=== PATIENT | female | born 1970 | race Caucasian/White ===

== ENCOUNTER → 2022-12-05 | Outpatient (CLI) | payer BC ==
--- NOTE | 2022-12-05 16:13 | Diagnostic Imaging Report ---
PROCEDURE: MRI left upper extremity without contrast. TECHNIQUE: Multiplanar, multisequence noncontrast-enhanced MRI of the left upper extremity was accomplished. INDICATION: Left shoulder pain. COMPARISON: None. FINDINGS: No acute fracture is seen in the left shoulder. Alignment appears normal. There is a minimal joint effusion. The supraspinatus, infraspinatus, and teres minor tendons are intact. The subscapularis tendon is intact. There is no muscular atrophy. The long head of the biceps tendon is normal in course and signal. The glenoid labrum is suboptimally evaluated in the absence of intra-articular contrast. No paralabral cyst is seen. The acromion has a curved undersurface. The coracoclavicular and coracoacromial ligaments appear intact. There is thickening of the inferior glenohumeral ligament with associated edema. There appears to be mild edema near the rotator interval and thickening of the coracohumeral ligament. IMPRESSION: 1. No acute osseous abnormality or rotator cuff tear is seen in the left shoulder. 2. Findings concerning for adhesive capsulitis. Dictated by: Dictated on workstation # [id number]
== END ==
LOC: RAD 13:30
PROVIDERS: ATTEND Nurse Practitioner
DX: M25.512 Pain in left shoulder (principal)
CPT/HCPCS: 73221